=== PATIENT | female | born 1940 | race Caucasian/White ===

== ENCOUNTER 2024-09-21 04:23 | Emergency (ER) | payer MEDICARE, SELFPAY ==
[2024-09-21 04:26] VITALS: BP 185/76
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
[2024-09-21 07:27] VITALS: BP 153/60; BMI 27.2
[2024-09-21 07:36] LABS: % Basophils 0.4 % (0-2); % Eosinophils 0.9 % (0-6); % Immature Granulocytes 0.4 % (0-0.5); % Lymphocytes 20.7 % (20.5-51.1); % Monocytes 13.4 % (1.7-9.3); % Neutrophils 64.2 % (42.2-75.2); Absolute Eosinophils 0.1 10^3/uL (0-0.7); Absolute Lymphocytes 1.2 10^3/uL (1.2-3.4); Absolute Monocytes 0.8 10^3/uL (0.1-0.6); Absolute Neutrophils 3.6 10^3/uL (1.4-6.5); Hematocrit 29.4 % (37.0-47.0); Mean Corpuscular Hgb 33.7 pg (27.0-31.0); Mean Platelet Volume 10.1 fL (7.4-10.4); Nucleated Red Blood Cells % 0 %; Platelet Count 224 10^3/uL (130-400); Red Blood Cell Count 2.97 10^6/uL (4.20-5.40); Red Cell Dist. Width 11.8 % (11.5-14.5); White Blood Cell Count 5.7 10^3/uL (4.8-10.8)
[2024-09-21 08:08] LABS: ALT (SGPT) 44 U/L (0-35); AST (SGOT) 34 U/L (14-36); Albumin 3.9 g/dl (3.5-5.0); Alkaline Phosphatase 89 U/L (38-126); Blood Urea Nitrogen 17 mg/dl (7-17); Calcium 9.3 mg/dl (8.4-10.2); Carbon Dioxide 26 mmol/L (22-30); Chloride 110 mmol/L (98-107); Estimated Creatinine Clearance 58 ml/min; Glucose 114 mg/dl (70-99); Potassium 4.2 mmol/L (3.5-5.1); Sodium 141 mmol/L (135-145); Total Bilirubin 0.9 mg/dl (0.2-1.3); Total Protein 6.2 g/dl (6.3-8.2); eGFR > 60.00
[2024-09-21 10:20] VITALS: BP 145/65
== END 2024-09-21 10:20 | disposition home or self-care (01) ==
LOC: EMR 04:23
PROVIDERS: Physician Assistant; EMERGENCY PHYSICIAN Emergency Medicine; FAMILY PHYSICIAN Internal Medicine Geriatric Medicine
DX: S80.02XA Contusion of left knee, initial encounter (principal); S09.90XA Unspecified injury of head, initial encounter; W19.XXXA Unspecified fall, initial encounter; I48.91 Unspecified atrial fibrillation; Z79.01 Long term (current) use of anticoagulants
CPT/HCPCS: 99284; 70450; 73030; 73564; 80053; 85025

== ENCOUNTER 2024-10-08 05:51 | Emergency (ER) | payer MEDICARE, SELFPAY ==
[2024-10-08 05:55] VITALS: BP 116/85
--- NOTE | 2024-10-08 10:21 | ED.MUSCINJ ---
HPI-Injury
General
Chief Complaint: Musculo-Skeletal Complaint
Time Seen by Provider: 10/08/24 09:05
History of Present Illness-Injury
Initial Injury comments:
84-year-old female brought to the ER by EMS for further evaluation of left lower extremity pain and swelling. Patient fell 2 weeks ago at her assisted living facility. She had been seen in this emergency department and was initiated on doxycycline
for treatment of suspected cellulitis to hematoma overlying left knee. Patient brings with her discharge paperwork for me to review at time of interaction. Patient reports that she has been wearing a compressive sleeve on her leg but it was having
increasing pain in her foot prompting referral back to the emergency department today by [facility] staff. Patient denies any fevers or chills. She reports that her leg has been persistently swollen, not necessarily more so since the injury.
She denies any chest pain or shortness of breath. No fevers. She is on long-term anticoagulation with Eliquis. She reports that the pain is greatest in her left lateral foot and is minimal when she is not attempting to weight-bear. She had been
given a prescription for 50 mg tramadol which she has not taken for fear of addiction. She has been using Tylenol with minimal improvement in her symptoms. She has been eating and drinking without difficulty.
Review of Systems
Review of Systems
Allergies reviewed?: Yes
All Other Systems: ROS reviewed and negative except as documented in HPI and ROS
Phy Exam
Physical Exam
Physical Exam:
Patient is awake, alert, oriented x 3, no acute distress, mucous membranes moist, left lower extremity exam reveals healing ecchymosis and abrasion overlying the left knee with no palpable joint effusion, cool erythema present overlying the knee
with normal healing appearance, there is mild discoloration to the left lower leg in comparison to normal right lower leg, no excessive warmth, no streaking, left foot examination reveals healing appearing ecchymosis along the dorsal foot extending
into the toes, she has brisk cap refill to the toes of the left foot with intact sensation to light touch, 2+ DP pulses present symmetric bilateral lower extremities, GCS is 15
Injury Course
Orders/Labs/Results
Orders:
Orders
10/08/24 09:17
Foot, Left 3 View [CR Foot - Left Min 3 Views] Urgent
Comment:
Reason For Exam: trauma
US Periph Venous LOWER Ext LT Urgent
Comment:
Reason For Exam: pain, swelling
10/08/24 11:06
Cast Shoe Left-Treatment ONCE
MDM/Problems Addressed
Differential Diagnosis Includes:
Differential diagnosis considered but not limited to DVT, strain, sprain, healing hematoma, occult fracture along with other etiologies considered
Chronic conditions affecting care:
Atrial fibrillation on long-term anticoagulation, hypertension, hyperlipidemia
Comment
Comment:
I reviewed radiology studies obtained on the ER visit dated 09/21/2024-patient had negative head CT, left shoulder x-ray and left knee without evidence for fracture or acute process
I reviewed radiology interpretation of ultrasound left lower extremity from today showing:
IMPRESSION:
No sonographic evidence for LEFT lower extremity deep venous thrombosis.
*Pulse Oximetry
SaO2: 95
Oxygen Mode of Delivery: Room air
Patient hypoxic: no
*Critical Care Note
Total Time (30-74mins, 75-104mins- exclusive of procedures): Not Applicable
Update Note
Update Note:
I independently viewed and interpreted x-ray of the left foot showing no fracture, mild degenerative change
I discussed with patient no evidence for fracture. I discussed with her use of Ortho shoe as needed for comfort to assist with ambulation. She felt comfortable with this plan. I discussed the swelling is likely related to compressive sleeve that
had been on her leg all night. Patient feels comfortable with plan for discharge home for continued supportive wound care. She will follow-up with her family doctor this week. She had no questions prior to the department
ED Attending Note
-
Portions of this chart may have been created with voice recognition software.� Occasional wrong word or��sound alike� substitutions may have occurred due to the inherent limitations of voice recognition software.
Discharge Plan
Departure
Patient Disposition: Home (Routine Discharge)
Date of Disposition: 10/08/24
Time of Disposition: 11:05
Patient with high blood pressure during this ER visit?: No
Condition: Good
Discharge Problem:
Contusion, Swelling
Instructions: Using Cold for Pain
Referrals:
Ambika James MD [Family Provider, Internal Medicine]
Activity Restrictions/Additional Instructions:
Use ice for 20 minutes 3-4 times daily to help with discomfort. You may alternate this with moist heat as desired for your comfort. Continue to keep foot elevated when not walking. Use cast shoe as given in the emergency department for comfort
while walking. Please follow-up with your doctor for reevaluation and further care. Continue Tylenol as needed for discomfort. You may try using 1/2 tablet tramadol as previously prescribed as desired for additional pain relief. Return to the ER
for any concerns
Interventions
Interventions:
*Risk Screen - Suicide Last Done: 10/08/24 06:02
*General Assessment Last Done: 10/08/24 10:31
*Neglect/Abuse Screening Last Done: 10/08/24 06:02
*ED- Fall Risk Assessment Last Done: 10/08/24 06:02
*ED COVID-19 Vaccine History Last Done: 10/08/24 10:31
*Nursing Disposition Last Done: 10/08/24 12:44
ED-Musculoskeletal Assessment Last Done: 10/08/24 10:31
Discharge Date and Time
Discharge Date/Time: 10/08/24 12:45
Print Language: BENGALI
[2024-10-08 10:31] VITALS: BMI 25.2
[2024-10-08 11:00] VITALS: BP 146/67
== END 2024-10-08 12:45 | disposition home or self-care (01) ==
LOC: EMR 05:51
PROVIDERS: EMERGENCY PHYSICIAN Emergency Medicine; FAMILY PHYSICIAN Internal Medicine Geriatric Medicine
DX: S80.12XA Contusion of left lower leg, initial encounter (principal); S80.212A Abrasion, left knee, initial encounter; W19.XXXA Unspecified fall, initial encounter; Y92.89 Other specified places as the place of occurrence of the external cause; M79.605 Pain in left leg; M79.89 Other specified soft tissue disorders; Z79.01 Long term (current) use of anticoagulants
CPT/HCPCS: 99284; 73630; 93971